=== PATIENT | male | born 1950 | race Caucasian/White ===

== ENCOUNTER 2022-03-04 15:17 | Outpatient (CLI) | payer OTHER | END 2022-03-04 15:30 | disposition home or self-care (01) | LOC: TOM 15:17 | PROVIDERS: ATTEND Internal Medicine Infectious Disease | DX: U07.1 COVID-19 (principal) ==

== ENCOUNTER 2022-03-05 13:36 | Outpatient (CLI) | payer OTHER | END 2022-03-05 14:00 | disposition home or self-care (01) | LOC: TOM 13:36 | PROVIDERS: ATTEND Internal Medicine Infectious Disease | DX: U07.1 COVID-19 (principal); R09.02 Hypoxemia | CPT/HCPCS: 71275; Q9965 ==